=== PATIENT | male | born 1990 | race Two or more races ===

== ENCOUNTER 2017-11-29 19:52 | Emergency (ER) | payer OTHER ==
[~2017-11-29] VITALS: Ht 198.1 cm; Wt 93.0 kg
[2017-11-29 20:05] VITALS: BP 116/74
[2017-11-29 20:51] LABS: Basophils # (auto) 0.1 uL; Basophils % (auto) 0.4 % (0.0-2.0); Eosinophils # (auto) 0.1 uL; Eosinophils % (auto) 0.4 % (0.0-7.0); Hematocrit 46.3 % (41.0-53.0); Hemoglobin 15.3 g/dL (13.5-17.5); Lymphocytes # (auto) 0.9 uL; Lymphocytes % (auto) 6.4 % (10.0-50.0); Mean Corpuscular Volume 93.9 fL (80.0-100.0); Monocytes # (auto) 0.7 uL; Monocytes % (auto) 5.2 % (0.0-12.0); Neutrophils # (auto) 12.5 uL; Neutrophils % (auto) 87.6 % (37.0-80.0); Platelet Count (auto) 275 10^3/uL (140-450); Red Blood Cells 4.93 10^6/uL (4.5-5.90); Red Cell Distribution Width 13.8 % (11.8-14.3); White Blood Cell 14.3 10^3/uL (4.4-10.8)
[2017-11-29 20:57] LABS: Albumin 3.4 g/dL (3.4-5.0); Calcium 7.8 mg/dL (8.5-10.1); Potassium 3.2 mmol/L (3.5-5.1)
[2017-11-29 21:00] LABS: Bilirubin, Total 0.8 mg/dL (0.2-1.0); Total Protein 7.2 g/dL (6.4-8.2)
[2017-11-29] MEDS ORDERED: LORazepam 2MG/ML-1ML VIAL IV ONE (22:30)
== END 2017-11-30 02:35 | disposition left against medical advice (07) ==
LOC: ER 19:52 → EDBD 19:52 → ER 11-30 02:35
DX: R55 Syncope and collapse (principal); Z53.21 Procedure and treatment not carried out due to patient leaving prior to being seen by health care provider
CPT/HCPCS: 36415; 70450; 80053; 85025; 93005; 96374